=== PATIENT | female | born 1970 | race Caucasian/White ===

== ENCOUNTER 2023-01-24 07:35 | Day surgery (SDC) | payer BC, OTHER ==
[~2023-01-24] VITALS: Ht 160 cm; Wt 52.0 kg
[2023-01-24 07:59] VITALS: BP 99/43
[2023-01-24] MEDS ORDERED: MELA10TA2 PO (08:05)
[2023-01-24] MEDS ORDERED: LIDOcaine 1% 30ml preserv. free vial IJ STA (08:05)
[2023-01-24] MEDS ORDERED: CYAN50003 PO (08:05)
[2023-01-24] MEDS ORDERED: TURM500C4 PO (08:07)
[2023-01-24] MEDS ORDERED: MULT-1085 PO (08:07)
[2023-01-24] MEDS ORDERED: HYDR-3972 PO (08:07)
[2023-01-24] MEDS ORDERED: ASCO500C7 PO (08:07)
[2023-01-24] MEDS ORDERED: LACT1CAP65 PO (08:08)
[2023-01-24 09:42] VITALS: BP 101/59
[2023-01-24 10:22] VITALS: BP 99/57
== END 2023-01-24 10:30 | disposition home or self-care (01) ==
LOC: SSTAY O 07:35
PROVIDERS: ATTEND Radiology Vascular & Interventional Radiology
DX: C50.411 Malignant neoplasm of upper-outer quadrant of right female breast (principal); J91.0 Malignant pleural effusion; Z79.899 Other long term (current) drug therapy
CPT/HCPCS: 32555; J3490

== ENCOUNTER 2023-02-11 13:04 | Emergency (ER) | payer OTHER ==
[~2023-02-11] VITALS: Ht 160 cm; Wt 51.4 kg
[~2023-02-11 13:04] MED LIST: ASCO500C7 PO; CYAN50003 PO; HYDR-3972 PO; LACT1CAP65 PO; MELA10TA2 PO; MULT-1085 PO; TURM500C4 PO
--- NOTE | 2023-02-11 13:25 | NUR ---
PATIENT REFUSED EKG AT THIS TIME R/T SKIN INFLAMMATION AND REDNESS/BREAST CANCER AND PAIN.
[2023-02-11 13:45] LABS: BASOPHILS % (AUTO) 0.6 % (0-1); EOSINOPHILS % (AUTO) 0.4 % (0-6); HEMATOCRIT 42.3 % (35.0-45.0); HEMOGLOBIN 13.8 g/dl (12.0-16.0); LYMPHOCYTES # (AUTO) 0.3 X10'3 (1.1-4.8); LYMPHOCYTES % (AUTO) 4.1 % (21-51); MEAN CORPUSCULAR HEMOGLOBIN 30.9 PG (27.0-31.0); MEAN CORPUSCULAR HGB CONC 32.6 g/dL (33.0-36.5); MEAN CORPUSCULAR VOLUME 94.7 FL (78-98); MEAN PLATELET VOLUME 7.4 FL (7.4-10.4); MONOCYTES # (AUTO) 0.4 X10'3 (0-0.9); MONOCYTES % (AUTO) 4.6 % (2-12); NEUTROPHILS # (AUTO) 7.4 X10'3 (1.8-7.7); NEUTROPHILS % (AUTO) 90.3 % (42-75); PLATELET COUNT 477 X10'3 (140-440); RED BLOOD COUNT 4.47 X10'6 (4.20-5.60); RED CELL DISTRIBUTION WIDTH 16.5 % (11.5-14.5); WHITE BLOOD COUNT 8.1 X10'3 (4.5-11.0)
[2023-02-11 13:55] LABS: ALANINE AMINOTRANSFERASE 28 U/L (12-78); ALBUMIN 3.5 G/DL (3.4-5.0); ALKALINE PHOSPHATASE 86 IU/L (46-116); ANION GAP 14 (8-16); ASPARTATE AMINO TRANSFERASE 60 U/L (10-37); BILIRUBIN,TOTAL 0.7 MG/DL (0.1-1.0); BLOOD UREA NITROGEN 11 MG/DL (7-18); CHLORIDE 99 MMOL/L (99-107); CREATININE 0.58 MG/DL (0.40-0.90); GLUCOSE 95 MG/DL (70-104); POTASSIUM 3.8 MMOL/L (3.5-5.1); SODIUM 135 MMOL/L (135-145); TOTAL CARBON DIOXIDE 22.4 MMOL/L (24-32); TOTAL PROTEIN 7.1 G/DL (6.4-8.2); eGFR > 90 ML/MIN
--- NOTE | 2023-02-11 15:30 | NUR ---
Pt requesting no cardiac leads at this time due to skin inflammation and senstivity across chest r/t breast cancer
[2023-02-11 15:35] LABS: D-DIMER 0.68 MG/L FEU (0-0.50)
[2023-02-11] MEDS ORDERED: iohexol 350MG/ML 100ml bottle IV ONE (15:59)
--- NOTE | 2023-02-11 16:06 | NUR ---
Pt to CT at this time
[2023-02-11 17:52] VITALS: BP 126/77
== END 2023-02-11 18:08 | disposition home or self-care (01) ==
LOC: ER 13:04
DX: J90 Pleural effusion, not elsewhere classified (principal); Z79.899 Other long term (current) drug therapy; Z79.1 Long term (current) use of non-steroidal anti-inflammatories (NSAID); Z79.2 Long term (current) use of antibiotics
CPT/HCPCS: 36415; 71045; 71275; 80053; 83880; 84484; 85025; 85379; 99285; J3490; Q9967

== ENCOUNTER 2023-02-14 06:37 | Day surgery (SDC) | payer OTHER ==
[~2023-02-14] VITALS: Ht 160 cm; Wt 48.8 kg
[2023-02-14] VITALS (7 sets, daily range): BP systolic 97–127; BP diastolic 58–79
[~2023-02-14 06:37] MED LIST changes: -CYAN50003 PO; +CYAN50007 PO
[2023-02-14] MEDS ORDERED: albumin 25% 100mL bottle x 1 IV PRN (06:50)
[2023-02-14] MEDS ORDERED: MORP-92 PO (07:36)
[2023-02-14] MEDS ORDERED: LIDOcaine 1%/PF 5ML 10 MG/ML VIAL SQ ONE (08:00)
== END 2023-02-14 09:50 | disposition home or self-care (01) ==
LOC: SSTAY O 06:37
PROVIDERS: ATTEND Radiology Vascular & Interventional Radiology
DX: J90 Pleural effusion, not elsewhere classified (principal); C50.411 Malignant neoplasm of upper-outer quadrant of right female breast; Z79.899 Other long term (current) drug therapy
CPT/HCPCS: 32555; J3490; A6258; A6449

== ENCOUNTER 2023-04-11 07:16 | Day surgery (SDC) | payer OTHER ==
[2023-04-11] VITALS (8 sets, daily range): BP systolic 121–136; BP diastolic 79–95
[~2023-04-11] VITALS: Ht 160 cm; Wt 47.9 kg
[~2023-04-11 07:16] MED LIST changes: +CAPE500T15 PO; -CYAN50007 PO; -LACT1CAP65 PO; -MELA10TA2 PO; +MSC30T PO; +PYRI200T9 PO; -TURM500C4 PO
[2023-04-11] MEDS ORDERED: albumin 25% 100mL bottle x 1 IV PRN (07:40)
[2023-04-11] MEDS ORDERED: ondansetron/PF 4mg/2ml inj IV ONE ×2 (08:35→09:00)
[2023-04-11] MEDS ORDERED: HYDROmorphone inj. 0.5 MG/0.5 ML DISP.SYRIN IV ONE (08:35)
[2023-04-11] MEDS ORDERED: normal saline 1000ml 1,000 ML IV ONE (08:35)
== END 2023-04-11 10:00 | disposition home or self-care (01) ==
LOC: SSTAY O 07:16
PROVIDERS: ATTEND Radiology Vascular & Interventional Radiology
DX: J90 Pleural effusion, not elsewhere classified (principal); C50.411 Malignant neoplasm of upper-outer quadrant of right female breast; Z79.899 Other long term (current) drug therapy; Z98.890 Other specified postprocedural states
CPT/HCPCS: 32555; C1729; J1170; J2405; J3490; J7030

== ENCOUNTER 2023-04-22 08:21 | Day surgery (SDC) | payer OTHER ==
[~2023-04-22] VITALS: Ht 160 cm; Wt 46.3 kg
[2023-04-22 08:36] VITALS: BP 102/76
[2023-04-22] MEDS ORDERED: OXYC10TA47 PO (08:43)
[2023-04-22] MEDS ORDERED: AMIN1CAP5 (08:43)
[2023-04-22 10:09] VITALS: BP 103/82
[2023-04-22 10:29] VITALS: BP 104/82
== END 2023-04-22 10:45 | disposition home or self-care (01) ==
LOC: SSTAY O 08:21
PROVIDERS: ATTEND Radiology Diagnostic Radiology
DX: J90 Pleural effusion, not elsewhere classified (principal); C50.411 Malignant neoplasm of upper-outer quadrant of right female breast; Z79.899 Other long term (current) drug therapy
CPT/HCPCS: 32555; C1729; J3490; A4615

== ENCOUNTER 2023-05-06 08:11 | Day surgery (SDC) | payer OTHER ==
[~2023-05-06] VITALS: Ht 160 cm; Wt 43.8 kg
[2023-05-06] VITALS (8 sets, daily range): BP systolic 83–104; BP diastolic 61–73; PULSE 82–121; RESP 16; TEMP 97.6; O2SAT 96–98
[~2023-05-06 08:11] MED LIST changes: +AMIN1CAP5; -HYDR-3972 PO; +OXYC10TA47 PO
[2023-05-06] MEDS ORDERED: LIDOcaine 1% 30ml preserv. free vial SQ STA (08:13)
[2023-05-06] MEDS ORDERED: albumin 25% 100mL bottle x 1 IV PRN (08:30)
== END 2023-05-06 12:00 | disposition home or self-care (01) ==
LOC: SSTAY O 08:11
PROVIDERS: ATTEND Radiology Vascular & Interventional Radiology
DX: J90 Pleural effusion, not elsewhere classified (principal); C50.411 Malignant neoplasm of upper-outer quadrant of right female breast; I95.9 Hypotension, unspecified; R00.0 Tachycardia, unspecified; Z98.890 Other specified postprocedural states; Z79.899 Other long term (current) drug therapy
CPT/HCPCS: 32555; A6258; C1729; J3490; J7030